=== PATIENT | female | born 1990 | race Caucasian/White ===

== ENCOUNTER 2016-10-26 18:29 | Emergency (ER) | payer SELFPAY ==
[2016-10-26 19:40] VITALS: RESP 16
[2016-10-26 19:55] LABS: RBC URINE 37 /hpf (0-3); URINE BACTERIA MOD (<OCC); URINE BILIRUBIN NEGATIVE (NEGATIVE); URINE BLOOD NEGATIVE (NEGATIVE); URINE COLOR Yellow (YELLOW); URINE GLUCOSE (UA) NORMAL (Normal); URINE KETONE TRACE mg/dL (NEGATIVE); URINE LEUKOCYTE ESTERASE 3+ Leu/uL (Negative); URINE PROTEIN 1+ mg/dL (NEGATIVE); WBC URINE 242 /hpf (0-5)
[2016-10-26] MEDS ORDERED: Sodium Chloride 0.9% 1,000 ML IV ONE ×2 (21:20→21:23)
--- NOTE | 2016-10-26 23:34 | C.PDOC ---
History Of Present Illness 26 y/o female presents to ED with complaints of headache, back pain, and abdominal pain with several episodes of vomiting noted since this morning. Patient denies fever, chills, urinary symptoms, vaginal bleeding or discharge. No other medical problems; no medications taken for symptoms. Patient notes no history of prior UTI's. Time Seen by Provider: 10/26/16 20:57 Chief Complaint (Nursing): Flu-like Symptoms History Per: Patient History/Exam Limitations: no limitations Onset/Duration Of Symptoms: Hrs Current Symptoms Are (Timing): Still Present Location Of Pain: Headache Sick Contacts (Context): None Associated Symptoms: Myalgias, Vomiting. denies: Fever, Chills, Cough, Diarrhea Ear Symptoms: Bilateral: None Recent travel outside of the [place]: No Past Medical History Reviewed: Historical Data, Nursing Documentation, Vital Signs Vital Signs: Last Vital Signs Temp 98.8 F 10/27/16 00:11 Pulse 88 10/27/16 00:11 Resp 16 10/27/16 00:11 BP 101/67 10/27/16 00:11 Pulse Ox 100 10/27/16 00:11 - Medical History PMH: No Chronic Diseases Family History: States: Unknown Family Hx - Social History Hx Tobacco Use: No Hx Alcohol Use: Yes Hx Substance Use: No - Immunization History Hx Tetanus Toxoid Vaccination: No Hx Influenza Vaccination: No Hx Pneumococcal Vaccination: No Review Of Systems Except As Marked, All Systems Reviewed And Found Negative. Constitutional: Negative for: Fever, Chills Cardiovascular: Negative for: Chest Pain Respiratory: Negative for: Cough Gastrointestinal: Positive for: Vomiting, Abdominal Pain. Negative for: Diarrhea Genitourinary: Negative for: Dysuria, Hematuria, Vaginal Discharge, Vaginal Bleeding Musculoskeletal: Positive for: Back Pain Skin: Negative for: Rash Physical Exam - Physical Exam Appears: Non-toxic, No Acute Distress Skin: Warm, Dry Head: Atraumatic, Normacephalic Oral Mucosa: Moist Chest: Symmetrical Cardiovascular: Rhythm Regular Respiratory: Normal Breath Sounds, No Rales, No Rhonchi, No Wheezing Gastrointestinal/Abdominal: Soft, Tenderness (slight bilateral flank tenderness , slight general abdominal tenderness ), No Distention, No Guarding, No Rebound Extremity: Normal ROM, Capillary Refill (< 2 sec. ) Neurological/Psych: Oriented x3, Normal Speech, Normal Cognition ED Course And Treatment O2 Sat by Pulse Oximetry: 95 Pulse Ox Interpretation: Normal Medical Decision Making Medical Decision Making: UA positive. Treated with Rocephin, IV fluids, Zofran, and Toradol. Patient is tolerating PO in the ED. REsults and course discussed with pt and so Pt non toxic, afebrile, tolerating po op trial indicated Plan home with meds, return new / worse sympts Disposition Counseled Patient/Family Regarding: Diagnosis, Need For Followup - Disposition Referrals: [facility] at [facility] [Outside] Disposition: HOME/ ROUTINE Disposition Time: 23:34 Condition: GOOD Additional Instructions: return to the ED for any new or worsening symptoms , Prescriptions: Ciprofloxacin [Cipro] 1 tab PO BID #14 tab Metoclopramide [Reglan] 1 tab PO TID PRN #14 tab PRN Reason: Nausea/Vomiting Instructions: Urinary Tract Infection in Women (ED) Forms: Work Excuse Print Language: DOMINICAN - Clinical Impression Clinical Impression: Pyelonephritis - Scribe Statement The provider has reviewed the documentation as recorded by the Polo Hung Provider Santhoshibe Attestation: All medical record entries made by the Polo were at my direction and personally dictated by me. I have reviewed the chart and agree that the record accurately reflects my personal performance of the history, physical exam, medical decision making, and the department course for this patient. I have also personally directed, reviewed, and agree with the discharge instructions and disposition.
[2016-10-27 00:14] VITALS: BP 101/67; PULSE 88; TEMP 98.8
[2016-10-28 15:19] VITALS: O2SAT 95
== END 2016-10-27 00:15 | disposition home or self-care (01) ==
LOC: C.ER 18:29
DX: N12 Tubulo-interstitial nephritis, not specified as acute or chronic (principal)
CPT/HCPCS: 81001; 84703; 96361; 96374; 96375; 99284; J1885; J2405; J7040

== ENCOUNTER 2017-10-06 16:44 | Emergency (ER) | payer SELFPAY ==
[2017-10-06 19:07] LABS: SQUAMOUS EPITHIAL 1 /hpf (0-5); URINE BACTERIA RARE (<OCC); URINE BILIRUBIN NEGATIVE (NEGATIVE); URINE BLOOD NEGATIVE (NEGATIVE); URINE CLARITY Clear (Clear); URINE COLOR Colorless (YELLOW); URINE GLUCOSE (UA) NORMAL (Normal); URINE LEUKOCYTE ESTERASE NEG Leu/uL (Negative); URINE PROTEIN NEGATIVE (NEGATIVE); URINE UROBILINOGEN NORMAL mg/dL (0.2-1.0)
[2017-10-06] MEDS ORDERED: Sodium Chloride 0.9% 1,000 ML IV STA (19:52)
--- NOTE | 2017-10-06 20:38 | C.PDOC ---
History Of Present Illness 27 year old female presents to the ED c/o lower back pain for the past 2 days. 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 Patient denies any injury, fall, trauma, weakness, numbness, saddle anesthesia, bowel/urinary incontinence. After being in the ED for 3 hours patient also states she has been having abdominal pain for the past 2 months. Patient started a work up but is requesting her blood work to be done here. Time Seen by Provider: 10/06/17 18:37 Chief Complaint (Nursing): Back Pain History Per: Patient History/Exam Limitations: no limitations Onset/Duration Of Symptoms: Days Current Symptoms Are (Timing): Still Present Quality Of Discomfort: "Pain" Severity: None Associated Symptoms: None Recent travel outside of the [place]: No Additional History Per: Patient Past Medical History Reviewed: Historical Data, Nursing Documentation, Vital Signs Vital Signs: Last Vital Signs Temp 97.8 F 10/06/17 20:49 Pulse 84 10/06/17 20:49 Resp 16 10/06/17 20:49 BP 110/71 10/06/17 20:49 Pulse Ox 98 10/06/17 21:54 - Medical History PMH: No Chronic Diseases Surgical History: No Surg Hx Family History: States: Unknown Family Hx - Social History Hx Tobacco Use: No Hx Alcohol Use: Yes Hx Substance Use: No - Immunization History Hx Tetanus Toxoid Vaccination: No Hx Influenza Vaccination: No Hx Pneumococcal Vaccination: No Review Of Systems Constitutional: Negative for: Fever, Chills Cardiovascular: Negative for: Chest Pain Gastrointestinal: Positive for: Abdominal Pain. Negative for: Nausea, Vomiting Genitourinary: Negative for: Incontinence Musculoskeletal: Positive for: Back Pain Neurological: Negative for: Weakness, Numbness Physical Exam - Physical Exam Appears: Non-toxic, No Acute Distress Skin: Normal Color, Warm, Dry Head: Atraumatic, Normacephalic Eye(s): bilateral: Normal Inspection Nose: No Discharge Oral Mucosa: Moist Neck: Normal ROM, Supple Gastrointestinal/Abdominal: Soft, No Tenderness, No Guarding, No Rebound Back: Paraspinal Tenderness (lumbar area) Extremity: Normal ROM, No Tenderness, No Swelling Neurological/Psych: Oriented x3, Normal Motor, Normal Sensation Gait: Steady ED Course And Treatment - Laboratory Results Result Diagrams: 10/06/17 20:45 10/06/17 20:45 O2 Sat by Pulse Oximetry: 98 (On RA) Pulse Ox Interpretation: Normal Reassessment Condition: Improved (ambulatory, no neuro deficit, stable for discharge.) Medical Decision Making Medical Decision Making: Impression: back pain, abdominal pain Plan: * Labs * IV fluids * LS spine X-Ray * UA Disposition - Disposition Referrals: [facility] at [facility] [Outside] Disposition: HOME/ ROUTINE Disposition Time: 21:51 Condition: GOOD Additional Instructions: Follow up in Clinic within 1-2 days. Return to ED if feel worse. 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 - Scribe Statement The provider has reviewed the documentation as recorded by the Scribe Misael Rush All medical record entries made by the Scribe were at my direction and personally dictated by me. I have reviewed the chart and agree that the record accurately reflects my personal performance of the history, physical exam, medical decision making, and the department course for this patient. I have also personally directed, reviewed, and agree with the discharge instructions and disposition.
[2017-10-06 20:50] VITALS: BP 110/71; PULSE 84; RESP 16; TEMP 97.8
[2017-10-06 20:58] LABS: BASO # 0.1 K/uL (0.0-0.2); BASO % 0.5 % (0.0-2.0); EOS # 0.3 K/uL (0.0-0.7); EOS % 2.5 % (0.0-4.0); HEMOGLOBIN 14.6 g/dL (11.0-16.0); LYMPH # 3.1 K/uL (1.0-4.3); LYMPH % 25.6 % (20.0-40.0); MEAN CORPUSCULAR HEMOGLOBIN 30.3 pg (27.0-31.0); MEAN CORPUSCULAR HGB CONC 34.4 g/dL (33.0-37.0); MEAN PLATELET VOLUME 7.7 fL (7.2-11.7); MONO # 0.8 K/uL (0.0-0.8); MONO % 6.6 % (0.0-10.0); NEUT # 7.9 K/uL (1.8-7.0); NEUT % 64.8 % (50.0-75.0); RBC 4.84 Mil/uL (3.80-5.20); RED CELL DISTRIBUTION WIDTH 13.9 % (11.5-14.5); WHITE BLOOD COUNT 12.1 K/uL (4.8-10.8)
[2017-10-06] MEDS ORDERED: Lidocaine 5% Patch TD STA (20:59)
[2017-10-06 21:11] LABS: ALB/GLOB RATIO 1.2 (1.0-2.1); ALBUMIN 4.3 g/dL (3.5-5.0); ALT/SGPT 18 U/L (9-52); AMYLASE 58 U/L (30-110); AST/SGOT 22 U/L (14-36); BLOOD UREA NITROGEN 13 mg/dL (7-17); CALCIUM 9.5 mg/dl (8.6-10.4); GFR AFRICAN-AMERICAN > 60; GFR NON-AFRICAN AMERICAN > 60; LIPASE 58 U/L (23-300)
[2017-10-06] MEDS ORDERED: Lidocaine 5% Patch TD ONE ×2 (21:16→21:19)
[2017-10-06 21:54] VITALS: O2SAT 98
--- NOTE | 2017-10-07 08:08 | RAD ---
PROCEDURE: Radiographs of the Lumbar Spine. HISTORY: back pain COMPARISON: None FINDINGS: BONES: Vertebral body heights are maintained. DISC SPACES: Disc space heights are preserved. OTHER FINDINGS: None. IMPRESSION: No lumbar spine fracture or subluxation identified.
== END 2017-10-06 22:12 | disposition home or self-care (01) ==
LOC: C.ER 16:44
DX: S39.012A Strain of muscle, fascia and tendon of lower back, initial encounter (principal); X50.0XXA Overexertion from strenuous movement or load, initial encounter; Y92.89 Other specified places as the place of occurrence of the external cause; Y99.8 Other external cause status
CPT/HCPCS: 72100; 80053; 81001; 82150; 83690; 85025; 96361; 96374; 99283; J1885; J7040

== ENCOUNTER 2018-03-15 18:38 | Emergency (ER) | payer OTHER ==
[2018-03-15 18:42] VITALS: RESP 18
[2018-03-15] MEDS ORDERED: Sodium Chloride 0.9% 1,000 ML IV ONE (19:29)
[2018-03-15 19:33] LABS: SQUAMOUS EPITHIAL 1 /hpf (0-5); URINE BACTERIA RARE (<OCC); URINE BILIRUBIN NEGATIVE (NEGATIVE); URINE BLOOD NEGATIVE (NEGATIVE); URINE CLARITY Clear (Clear); URINE COLOR Yellow (YELLOW); URINE GLUCOSE (UA) NORMAL (Normal); URINE LEUKOCYTE ESTERASE 1+ Leu/uL (Negative); URINE PROTEIN NEGATIVE (NEGATIVE)
[2018-03-15 19:37] LABS: HCG,QUALITATIVE URINE NEGATIVE (NEGATIVE)
[2018-03-15 19:42] LABS: BASO % 0.4 % (0.0-2.0); EOS # 0.3 K/uL (0.0-0.7); EOS % 3.2 % (0.0-4.0); HEMOGLOBIN 15.4 g/dL (11.0-16.0); LYMPH # 2.7 K/uL (1.0-4.3); LYMPH % 26.8 % (20.0-40.0); MEAN CORPUSCULAR HEMOGLOBIN 29.7 pg (27.0-31.0); MEAN CORPUSCULAR HGB CONC 34.8 g/dL (33.0-37.0); MEAN PLATELET VOLUME 7.7 fL (7.2-11.7); MONO # 0.7 K/uL (0.0-0.8); MONO % 6.6 % (0.0-10.0); NEUT # 6.3 K/uL (1.8-7.0); RBC 5.21 Mil/uL (3.80-5.20); RED CELL DISTRIBUTION WIDTH 13.3 % (11.5-14.5); WHITE BLOOD COUNT 9.9 K/uL (4.8-10.8)
[2018-03-15] MEDS ORDERED: Sodium Chloride 0.9% 1,000 ML ONE (19:43)
[2018-03-15 19:44] LABS: MEAN CELL VOLUME 85.2 fL (81.0-99.0)
[2018-03-15 19:55] LABS: ALB/GLOB RATIO 1.4 (1.0-2.1); ALBUMIN 4.8 g/dL (3.5-5.0); ALT/SGPT 15 U/L (9-52); AST/SGOT 22 U/L (14-36); BLOOD UREA NITROGEN 15 mg/dL (7-17); CALCIUM 9.7 mg/dl (8.6-10.4); GFR NON-AFRICAN AMERICAN > 60; LIPASE 77 U/L (23-300)
--- NOTE | 2018-03-15 20:20 | C.PDOC ---
History Of Present Illness 27yo female, comes to ER reporting a crampy abdominal discomfort with persistent mild nausea. Patient states she is unsure if she is ; of note , patient was seen by this physician in September with similar complaints and had extensive workup done. She denies any fever, chills, vomiting, vaginal bleeding or discharge. Time Seen by Provider: 03/15/18 19:20 Chief Complaint (Nursing): Abdominal Pain History Per: Patient History/Exam Limitations: no limitations Onset/Duration Of Symptoms: Days Current Symptoms Are (Timing): Still Present Associated Symptoms: Nausea Past Medical History Reviewed: Historical Data, Nursing Documentation, Vital Signs Vital Signs: Last Vital Signs Temp 98.8 F 03/15/18 21:10 Pulse 77 03/15/18 21:10 Resp 18 03/15/18 21:10 BP 109/74 03/15/18 21:10 Pulse Ox 100 03/15/18 21:10 - Medical History PMH: No Chronic Diseases Family History: States: Unknown Family Hx - Social History Hx Tobacco Use: No Hx Alcohol Use: Yes Hx Substance Use: No - Immunization History Hx Tetanus Toxoid Vaccination: No Hx Influenza Vaccination: No Hx Pneumococcal Vaccination: No Review Of Systems Except As Marked, All Systems Reviewed And Found Negative. Constitutional: Negative for: Fever, Chills Gastrointestinal: Positive for: Nausea, Abdominal Pain Genitourinary: Negative for: Vaginal Discharge, Vaginal Bleeding, Pelvic Pain Physical Exam - Physical Exam Appears: Non-toxic, No Acute Distress Skin: Normal Color, Warm, Dry Head: Atraumatic, Normacephalic Eye(s): bilateral: Normal Inspection, PERRL, EOMI Neck: Normal, Supple Chest: Symmetrical Cardiovascular: Rhythm Regular Respiratory: Normal Breath Sounds Gastrointestinal/Abdominal: Soft, No Tenderness, Other (alternating dull and tympanic to percussion) Back: Normal Inspection Extremity: Normal ROM Neurological/Psych: Oriented x3 ED Course And Treatment - Laboratory Results Result Diagrams: 03/15/18 19:39 03/15/18 19:39 Lab Interpretation: Normal (ua neg.) Urine POC: Negative O2 Sat by Pulse Oximetry: 98 (RA) Pulse Ox Interpretation: Normal Reevaluation Time: 20:21 Reassessment Condition: Improved Medical Decision Making Medical Decision Making: persistent abd colic seme as prior eval 10/07 w/u/preg neg. Abd films reviewed with pt @ bedside. Again, explained drink more water, diet/exercise changes though with poor insight, Disposition Doctor Will See Patient In The: Office Counseled Patient/Family Regarding: Studies Performed, Diagnosis - Disposition Referrals: [facility] [Outside] [facility] [Outside] [facility] [Outside] Disposition: HOME/ ROUTINE Disposition Time: 20:23 Condition: GOOD Additional Instructions: Gastritis sigue Pepcid 20 mg en la noche- se baje el acides del estomago en el temitope de gastritis Sigue por 3 meses Estrenemiento: dieta con MENOS arroz/ habicuelas, carne, snider, queso, junk food, dulces No come NADA frito MAS verduras y frutas crudas, adri manzana diario, agua Mas ejercisio cardiovascular; camina 45 min 5 owens por semana Sigue en la [facility] koffi necessario TODOS larisa examenes y prueba de embarasso es NEGATIVO hoy Placas del abdomen con MUCH exremento ladan un purgante ahora- recommendado adri botella de citrato de Magnesio- y re- evalua mccormack molestia del abdomen despues de usar el letty 2-3 veces. Puede repetir el tratamiento de purgantes occasionalmente koffi necessario, en temitope de estrenemiento. Instructions: Gastritis, Constipation, Adult (DC) Forms: [facility] (Palauan) Print Language: GREENLANDIC - Clinical Impression Clinical Impression: Abdominal pain, colicky - Scribe Statement The provider has reviewed the documentation as recorded by the Santhoshibricky Gould Provider Attestation: All medical record entries made by the Scribe were at my direction and personally dictated by me. I have reviewed the chart and agree that the record accurately reflects my personal performance of the history, physical exam, medical decision making, and the department course for this patient. I have also personally directed, reviewed, and agree with the discharge instructions and disposition.
[2018-03-15 21:12] VITALS: BP 109/74; PULSE 77; TEMP 98.8
[2018-03-15 21:17] VITALS: O2SAT 98
--- NOTE | 2018-03-16 09:08 | RAD ---
Date of service: 03/15/2018 PROCEDURE: Radiographs of the chest and abdomen (obstructive series) HISTORY: abd pain/colic, chronic COMPARISON: No prior. TECHNIQUE: AP radiograph of the chest, with upright and supine radiographs of the abdomen. FINDINGS: CHEST: Lungs: Clear. Cardiovascular: Normal size heart. No pulmonary vascular congestion. Pleura: No pleural fluid. No pneumothorax. Other findings: None. ABDOMEN AND PELVIS: Bowel: Stool retention. . No evidence of mechanical obstruction. Free air: None. Bones: Unremarkable. Other findings: None. IMPRESSION: No infiltrate. Moderate stool retention. No evidence of mechanical bowel obstruction.
== END 2018-03-15 21:11 | disposition home or self-care (01) ==
LOC: C.ER 18:38
DX: R10.84 Generalized abdominal pain (principal)
CPT/HCPCS: 74022; 80053; 81001; 83690; 84703; 85025; 96361; 96374; 99285; J1885; J7030

== ENCOUNTER 2018-06-26 12:24 | Emergency (ER) | payer OTHER ==
[2018-06-26 12:32] VITALS: TEMP 98
--- NOTE | 2018-06-26 13:00 | RAD ---
HISTORY: prod cough COMPARISON: Chest x-ray portion of obstructive series performed 03/15/18 TECHNIQUE: Chest PA and lateral FINDINGS: LUNGS: No focal consolidation. Please note that chest x-ray has limited sensitivity for the detection of pulmonary masses. PLEURA: No significant pleural effusion identified. No definite pneumothorax . CARDIOVASCULAR: Heart size appears within normal limits. No atherosclerotic calcification present. OSSEOUS STRUCTURES: No acute osseous abnormality identified. VISUALIZED UPPER ABDOMEN: Unremarkable. OTHER FINDINGS: None. IMPRESSION: No focal consolidation.
--- NOTE | 2018-06-26 13:12 | C.PDOC ---
History Of Present Illness 28 y/o female with no sig pmh c/o cough x 3 weeks with rhinorrhea, pleuritic chest pain with cough and occasional vomiting whitish phlegm. denies fevers and chills. no sick contacts. not on oral contraceptives. no recent travel taking rompo pecho and theraflu with no improvement. Time Seen by Provider: 06/26/18 12:35 Chief Complaint (Nursing): Cough, Cold, Congestion History Per: Patient History/Exam Limitations: no limitations, language barrier (interpeter # [id number] used ) Onset/Duration Of Symptoms: Days (21) Current Symptoms Are (Timing): Still Present Location Of Pain: None Sick Contacts (Context): None Associated Symptoms: Cough, Sputum, Nasal Congestion, Nausea, Vomiting. denies: Diarrhea Ear Symptoms: Bilateral: None Past Medical History Reviewed: Historical Data, Nursing Documentation, Vital Signs Vital Signs: Last Vital Signs Temp 98.0 F 06/26/18 12:28 Pulse 70 06/26/18 12:28 Resp 17 06/26/18 12:28 BP 161/84 H 06/26/18 12:28 Pulse Ox 97 06/26/18 12:28 - Medical History PMH: No Chronic Diseases Family History: States: Unknown Family Hx - Social History Hx Tobacco Use: No Hx Alcohol Use: Yes Hx Substance Use: No - Immunization History Hx Tetanus Toxoid Vaccination: No Hx Influenza Vaccination: No Hx Pneumococcal Vaccination: No Review Of Systems Constitutional: Negative for: Fever, Chills Eyes: Negative for: Pain ENT: Negative for: Ear Pain, Throat Pain Cardiovascular: Negative for: Chest Pain Respiratory: Positive for: Cough, Pleuritic Pain. Negative for: Hemoptysis, Wheezing Gastrointestinal: Positive for: Nausea, Vomiting. Negative for: Abdominal Pain Musculoskeletal: Negative for: Neck Pain Skin: Negative for: Rash Neurological: Negative for: Weakness, Numbness Physical Exam - Physical Exam Appears: Non-toxic, No Acute Distress Skin: Warm, Dry Head: Atraumatic, Normacephalic Eye(s): bilateral: Normal Inspection Ear(s): Bilateral: Normal Nose: Discharge Oral Mucosa: Moist Lips: Normal Appearing Throat: No Erythema, No Exudate Neck: Normal ROM, Supple Lymphatic: Adenopathy (mild bilateral submandibular nodes) Respiratory: No Decreased Breath Sounds, No Accessory Muscle Use, No Rales, No Rhonchi, No Wheezing Gastrointestinal/Abdominal: Bowel Sounds, Soft, No Tenderness Extremity: Normal ROM, No Tenderness, No Swelling Neurological/Psych: Oriented x3, Normal Speech, Normal Cognition ED Course And Treatment O2 Sat by Pulse Oximetry: 97 Pulse Ox Interpretation: Normal - Radiology CXR: Read By Radiologist CXR Interpretation: Yes: No Acute Disease Medical Decision Making Medical Decision Making: pt with 3 weeks of uri symptoms, neg cxr, afebrile. will tx with ginayrteluann evangelista [place]. f/u clinic. Disposition Counseled Patient/Family Regarding: Studies Performed, Diagnosis, Need For Followup, Rx Given - Disposition Referrals: [facility] at [facility] [Outside] Disposition: HOME/ ROUTINE Disposition Time: 13:22 Condition: GOOD Prescriptions: Acetaminophen [Tylenol 325mg tab] 650 mg PO Q6 #30 tab Cetirizine HCl 10 mg PO DAILY #14 tablet Ondansetron ODT [Zofran ODT] 4 mg PO TID #6 odt Instructions: Viral Upper Respiratory Infection, Adult (DC), Upper Respiratory Infection (ED) Forms: Gen Discharge Inst Irish, [facility] (Irish) Print Language: POLISH - Clinical Impression Clinical Impression: Upper respiratory infection
[2018-06-26 13:23] VITALS: BP 106/70; PULSE 79; RESP 18
[2018-06-26 13:32] VITALS: O2SAT 97
== END 2018-06-26 14:01 | disposition home or self-care (01) ==
LOC: C.ER 12:24
DX: J06.9 Acute upper respiratory infection, unspecified (principal)